=== PATIENT | male | born 1945 | race Caucasian/White ===

== ENCOUNTER 2019-02-13 08:42 | Day surgery (SDC) | payer MEDICARE, MEDICAID ==
[2019-02-13] VITALS (8 sets, daily range): BP systolic 112–138; BP diastolic 54–72; PULSE 66–75; TEMP 97.4–98.1
[~2019-02-13] VITALS: Ht 175.3 cm; Wt 79.1 kg
[2019-02-13] MEDS ORDERED: TYLENOL 500MG500 MG PO (09:55)
[2019-02-13] MEDS ORDERED: ASPIRIN 81M81 MG/TA2 PO (09:56)
[2019-02-13] MEDS ORDERED: CELEXA40 MG PO (09:59)
[2019-02-13] MEDS ORDERED: MULTIPLE VITAMI1 CAP PO (10:00)
[2019-02-13] MEDS ORDERED: PRAVACHOL 20MG20 MG PO (10:02)
[2019-02-13] MEDS ORDERED: DITROPAN 5MG TAB5 MG PO (10:02)
[2019-02-13] MEDS ORDERED: PROSCAR 5MG5 MG PO (10:03)
[2019-02-13] MEDS ORDERED: TOPROL XL 25MG25 MG PO (10:04)
[2019-02-13] MEDS ORDERED: FLOMAX 0.40.4 MG/CAP PO (10:05)
[2019-02-13] MEDS ORDERED: COLACE 100100 MG/CAP PO (10:05)
[2019-02-13] MEDS ORDERED: SYSTANE 0.4%-0.1 SOL OP (10:06)
[2019-02-13] MEDS ORDERED: NYSTATIN CREAM15 GM TP (10:07)
--- NOTE | 2019-02-13 12:30 | NUR ---
Patient returns to room 4 per cart from PACU and is awake and alert. Temp 97.6 and room air sats 93%. Garcia set dressing x3 on lower abdomen clean and dry. IV fluids infusing and denies pain or nausea. Patient taking sips of water. Sisters in room.
--- NOTE | 2019-02-13 12:45 | NUR ---
Room air sats 93% and is taking water. Talking with family.
--- NOTE | 2019-02-13 13:00 | NUR ---
Drinking Sprited and orange juice. Continues to deny pain or nausea.
--- NOTE | 2019-02-13 13:15 | NUR ---
Eating toast with peanut butter. Talking to family.
--- NOTE | 2019-02-13 13:30 | NUR ---
Now eating blueberry muffin. Denies pain or nausea.
[2019-02-13] MEDS ORDERED: NORCO 325 MG-51 TAB PO (13:49)
--- NOTE | 2019-02-13 14:00 | NUR ---
Up to the bathroom and voids. Tolerates activity well. Jokes and talks with the staff. Denies pain when asked.
--- NOTE | 2019-02-13 14:28 | NUR ---
Patient and sisters given dismissal instructions and voices understanding. Attempted to call report to [facility] and had to leave voice mail message to have them call me back.
--- NOTE | 2019-02-13 14:50 | NUR ---
Charge nurse from [facility] returns phone call and report given. All questions answered. Patient was sent with folder of dismissal instructions and script for [place].
== END 2019-02-13 14:28 | disposition home or self-care (01) ==
LOC: SDCO 08:42
DX: K40.90 Unilateral inguinal hernia, without obstruction or gangrene, not specified as recurrent (principal); G93.40 Encephalopathy, unspecified; E78.5 Hyperlipidemia, unspecified; F41.9 Anxiety disorder, unspecified; I10 Essential (primary) hypertension; N40.0 Benign prostatic hyperplasia without lower urinary tract symptoms; F32.9 Major depressive disorder, single episode, unspecified; F03.90 Unspecified dementia, unspecified severity, without behavioral disturbance, psychotic disturbance, mood disturbance, and anxiety; Z79.82 Long term (current) use of aspirin; Z85.46 Personal history of malignant neoplasm of prostate; Z87.820 Personal history of traumatic brain injury; Z82.3 Family history of stroke; Z82.49 Family history of ischemic heart disease and other diseases of the circulatory system; Z80.0 Family history of malignant neoplasm of digestive organs; Z80.1 Family history of malignant neoplasm of trachea, bronchus and lung; Z95.0 Presence of cardiac pacemaker
CPT/HCPCS: C1781; J0690; J1100; J1885; J2405; J2704; J3010; J7120

== ENCOUNTER → 2019-02-14 | Outpatient (CLI) | payer MEDICARE, MEDICAID ==
[~2019-02-14] MED LIST: ASPIRIN 81M81 MG/TA2 PO; CELEXA40 MG PO; COLACE 100100 MG/CAP PO; DITROPAN 5MG TAB5 MG PO; FLOMAX 0.40.4 MG/CAP PO; MULTIPLE VITAMI1 CAP PO; NORCO 325 MG-51 TAB PO; NYSTATIN CREAM15 GM TP; PRAVACHOL 20MG20 MG PO; PROSCAR 5MG5 MG PO; SYSTANE 0.4%-0.1 SOL OP; TOPROL XL 25MG25 MG PO; TYLENOL 500MG500 MG PO
== END ==
LOC: ZCOL.LAB 13:06
DX: Z01.89 Encounter for other specified special examinations (principal)